=== PATIENT | female | born 1995 | race Caucasian/White ===

== ENCOUNTER → 2018-04-21 13:34 | Outpatient (CLI) | payer SELFPAY ==
--- OUTSIDE RECORDS SUMMARY | 2018-06-23 12:46 | XMS RPT_ITS ---
:1995 Author Organization OHIP Care Team Providers Name Role Phone RudiAnanda rangel Attending Unavailable GALINDO DO, KONRAD N Admitting Unavailable GALINDO DO, KONRAD N Attending Unavailable GALINDO DO, KONRAD N Consulting Unavailable NONE, NONE Primary Care Unavailable NONE, NONE Consulting Unavailable GALINDO DO, KONRAD N Admitting Unavailable GALINDO DO, KONRAD N Attending Unavailable GALINDO DO, KONRAD N Consulting Unavailable NONE, NONE Primary Care Unavailable NONE, NONE Consulting Unavailable KOBI PRASAD MD Admitting Unavailable SHANICE ROWELL, KOBI Murray Attending Unavailable KOBI PRASAD MD Consulting Unavailable NONE, NONE Consulting Unavailable KOBI PRASAD MD Admitting Unavailable KOBI PRASAD MD Attending Unavailable KOBI PRASAD MD Consulting Unavailable NONE, NONE Primary Care Unavailable NONE, NONE Consulting Unavailable GALINDO DO, KONRAD N Admitting Unavailable GALINDO DO, KONRAD N Attending Unavailable NONE, NONE Primary Care Unavailable [facility] [phone], Damaso [phone] Consulting Unavailable GALINDO DO, [facility] Consulting Unavailable NONE, NONE Consulting Unavailable PROBLEMS PROBLEMS DATE TYPE CONDITION / CODE ATTENDING STATUS SOURCE 04/21/2018 Unknown Z36.85 - Encounter Ananda Zhou Active [facility] Streptococcus B / Repository Z36.85(ICD-10) 03/09/2018 Unknown SUP PG INSUFF SHANICE ROWELL, KOBI Active [facility] TRI / Repository O09.30(ICD-10) 02/19/2018 Admitting PREG INSUFF RUBEN PRASAD MD, KOBI Active [facility] diagnosis CARE / V23.7(ICD-9) E Hospital Repository 02/19/2018 Unknown PREG INSUFF RUBEN PRASAD MD, KOBI Active [facility] CARE / V23.7(ICD-9) E Hospital Repository 03/09/2018 Admitting SUP PG INSUFF GALINDO DO, Active [facility] diagnosis [facility]L [facility] TRI / Repository O09.30(ICD-10) 03/09/2018 Unknown SUP PG INSUFF GALINDO DO, Active [facility] [address] [place] [address] TRI / Repository O09.33(ICD-10) 03/09/2018 Unknown 29 WEEKS GESTATION GALINDO DO, Active [facility] OF / [facility] Z3A.29(ICD-10) Repository 03/09/2018 Unknown ENCTR GALINDO DO, Active [facility] SCREENING UNSPEC / [facility] Z36.9(ICD-10) Repository 02/19/2018 Unknown ENC SUPV OT KOBI GALLARDO MD Active [facility] PREG FIRST TRI / E Hospital Z34.81(ICD-10) Repository 02/19/2018 Admitting ENC SUPV OTKOBI GEORGE MD Active [facility] diagnosis PREG FIRST TRI / E Hospital Z34.81(ICD-10) Repository 05/07/2017 Admitting COMPLETE/UNS SPONT GALINDO DO, Active [facility] diagnosis AB W/O COMP / [facility] Hospital O03.9(ICD-10) Repository 05/07/2017 Unknown COMPLETE/UNS SPONT GALINDO DO, Active [facility] AB W/O COMP / [facility] Hospital O03.9(ICD-10) Repository 05/05/2017 Admitting SAB NOS W/O GALINDO DO, Active [facility] 05/05/2017 Unknown SAB NOS W/O GALINDO DO, Active [facility] COMPLICATION / KONRAD N Hospital 634.90(ICD-9) Repository PROCEDURES PROCEDURES No Procedure Records FoundRESULTS RESULTS Observed: 04/21/2018 Status: F Source: [place] CULTURE, GROUP B 12:15 PM [facility] STREPTOCOCCUS REPOSITORY Comments: VAGINAL/RECTAL JANETH Culture Group B Beta Streptococcus is not isolated. Performed By: #### M100.1800 #### [facility] [address] [place], [address] CBC WITHOUT DIFFERENTIAL Collected: 03/05/2018 Status: F Source: MERRILL 11:50 AM [facility] REPOSITORY TYPE CODE TESTS RESULT OUT OF REFERENCE UNITS RANGE LAB 6690-2(LOIN 4.80-10.80 10E3/uL C) WBC # Bld Auto 10.19 LAB 789-8(LOINC 4.00-6.30 10E6/uL ) RBC # Bld Auto 4.05 LAB 718-7(LOINC 12.0-16.0 g/dL ) Low Hgb Bld-mCnc 11.6 LAB 4544-3(LOIN 37.0-47.0 % C) Low Hct VFr Bld 33.2 Auto LAB 787-2(LOINC 80.0-100.0 fL ) MCV RBC Auto 82.0 LAB 785-6(LOINC 27.0-31.0 pg ) MCH RBC Qn 28.6 Auto LAB 786-4(LOINC 32.0-36.0 g/dL ) MCHC RBC 34.9 Auto-mCnc LAB 55510-2(KELI 36.4-46.3 fL NC) RDW RBC Auto 40.4 LAB 777-3(LOINC 130-400 10E3/uL ) Platelet # Bld 215 Auto LAB 11759-9(KELI 9.0-13.0 fL NC) PMV Bld Auto 10.6 Performed By: #### 84520-5 #### [facility] [address] [place], [place] [address] [employer]sembler - Iza BATISTA [id number] GLUCOSE CHALLENGE Collected: 03/05/2018 Status: F Source: [facility] 11:50 AM HOSPITAL REPOSITORY TYPE CODE TESTS RESULT OUT OF REFERENCE UNITS RANGE LAB 04676-2(LO 70-140 mg/dL INC) 128 Glucose 1h p Glc SerPl-mCnc LAB HGLUCHAL(L OINC) NOTE: HGLUCHAL If patient value is equal to or exceeds 140 mg/dL, the 3 HR Oral Glucose Tolerance Test is recommended. Performed By: #### 97841-9 #### [place] [address] [place] [address] [employer] - [facility] [id number] RPR Collected: 03/05/2018 Status: F Source: [facility] 11:50 AM HOSPITAL REPOSITORY TYPE CODE TESTS RESULT OUT OF REFERENCE UNITS RANGE LAB 45492-2(LO NON REACTIVE INC) NON REACTIVE RPR Ser Ql LAB HRPR(LOINC ) All reactive HRPR test results will be followed up with confirmatory testing. The diagnosis of syphilis should not be made on a single reactive result without the support of a positive history or clinical evidence. Therefore, as with any serological testing procedure, Reactive card test specimens should be subjected to further serologic study. Performed By: #### 96705-2 #### [place] [address] [employer] - [facility] [id number] RUBELLA AB IGG Collected: 03/05/2018 Status: F Source: [facility] 11:50 AM HOSPITAL REPOSITORY TYPE CODE TESTS RESULT OUT OF REFERENCE UNITS RANGE LAB 25690-7(L IU/mL OINC) 32.9 RUBV IgG Ser Ql EIA LAB HRUBELLA( LOINC) RUBELLA IgG HRUBELLA INTERPRETATION <5.0 IU/mL Non-immune 5.0-9.9 IU/mL Equivocal >10.0 IU/mL Immune Performed By: #### 02148-5 #### [place] [address] [employer] - [facility] [id number] HEP B SURFACE AG Collected: 03/05/2018 Status: F Source: [facility] 11:50 AM HOSPITAL REPOSITORY TYPE CODE TESTS RESULT OUT OF REFERENCE UNITS RANGE LAB 5195-3(KELI NEGATIVE ISR NC) NONREACTIVE HBV surface Ag Ser Ql LAB HHBVSAG(LO INC) INTERPRETATION OF HHBVSAG RESULTS A NONREACTIVE test result means that the specimen is presumed to be negative for HBsAg. A REACTIVE test result means that the specimen is reactive for HBsAg. All reactive results will be followed up with confirmatory testing. Performed By: #### HBVSAGV #### [address] [place] [address] [employer] - [facility] [id number] HIV 1 AND 2 SCREEN Collected: 03/05/2018 Status: F Source: [facility] 11:50 AM HOSPITAL REPOSITORY TYPE CODE TESTS RESULT OUT OF REFERENCE UNITS RANGE LAB 7918-6(KELI NON REACTIVE ISR NC) NON REACTIVE HIV1+2 Ab Ser Ql LAB HHIV(INC ) INTERPRETATION OF HHIV RESULTS A NON REACTIVE test result means that HIV-1 and HIV-2 antibodies were not detected in the specimen. A REACTIVE test result means that HIV-1 and HIV-2 antibodies have been detected in the specimen. This HIV 1,2 test is a rapid screen for the presence of HIV 1 and 2 antibodies. All reactive test results will be followed up with confirmatory testing. Performed By: #### 37138-6 #### [address] [place] [address] [employer] - [facility] [id number] HEP C AB WITH REFLEX Collected: 03/05/2018 Status: F Source: [facility] 11:50 AM [facility] REPOSITORY TYPE CODE TESTS RESULT OUT OF REFERENCE UNITS RANGE LAB HCVAB(LOIN ISR C) NONREACTIVE HEP C Ab LAB HHCV(INC ) INTERPRETATION OF HHCV RESULTS A NONREACTIVE test result means that the specimen is presumed to be negative for Hep C Ab. A REACTIVE test result means that the specimen is reactive for Hep C Ab. All reactive results will be followed up with confirmatory testing. Performed By: #### HCVAB #### [address] [place] [address] [employer] As[employer] - [facility] [id number] Observed: 03/05/2018 Status: F Source: [facility] CULTURE URINE 10:48 AM HOSPITAL REPOSITORY COLONY COUNT = ZERO COLONY FORMING UNITS, ML ISOL NO GROWTH OBSERVED AFTER 1 DAY NO PATHOGENS GROWN AFTER 2 DAYS Performed By: #### URINE #### [facility] [address] [place] [address] Scroll Assembler - Iza BATISTA [id number] ULTRASOUND 2ND Observed: 03/05/2018 Status: F Source: [facility] OR 3RD TRIMESTER 9:43 AM HOSPITAL REPOSITORY TRANSABDOMINAL OBSTETRICAL ULTRASOUND DATE: 03/05/2018 INDICATION: Late care. FINDINGS: Transabdominal obstetrical ultrasound is performed and compared to the prior examination from 04/13/2017. There is a single live intrauterine gestation in cephalic presentation. Amniotic fluid index measures 11 cm. The placenta is anterior and grade 0. No placenta previa. The facial structures as well as the intracranial structures are slightly limited in evaluation due to ossified calvarium. However, the thalami and ventricles appear to be normal in appearance. The stomach, kidneys, bladder, cord insertion, three-vessel cord, and 4-chambered heart are normally visualized. measurements: BPD 7.3 cm, 29 weeks 3 days HC: 28 cm, 30 weeks 3 days AC: 26 cm, 30 weeks 4 days FL: 5.7 cm, 30 weeks 0 days HC/AC 1.05 (0.98-1.20) Estimated weight: 1546 g corresponding to the 47th percentile Heart rate: 149 bpm Estimated gestational age: 29 weeks and 5 days Estimated date of confinement: 05/16/2018 IMPRESSION: 1. Single live intrauterine gestation in cephalic presentation with anatomic survey grossly normal. However, the facial structures as well as intracranial structures are slightly suboptimally evaluated on this exam. 2. Gestational age of 29 weeks and 5 days corresponding to an estimated date of confinement of 05/16/2018. measurements are given in the body of the report. CHLAMYDIA AND Collected: 02/16/2018 Status: F Source: [facility] GONORRHEA ANGELIQUE 5:23 PM HOSPITAL REPOSITORY TYPE CODE TESTS RESULT OUT OF REFERENCE UNITS RANGE LAB 039875(LOIN Negative C) 37669-2 Negative LAB 039803(LOIN Negative C) 20477-5 Negative Performed By: #### GCCH #### Performed for [facility] [address] [place] [address] HCG BLOOD Collected: 05/05/2017 Status: F Source: [facility] 10:39 AM HOSPITAL REPOSITORY TYPE CODE TESTS RESULT OUT OF REFERENCE UNITS RANGE LAB 62606-0(LO 1-3 mIU/mL INC) 4 High B-HCG SerPl-aCnc LAB HHCG(LOINC ) HCG INTERPRETATION HHCG The expected values were calculated non-parametrically and represent the central 95% of the population. When borderline results are encountered, patient samples should be drawn 48 hours later. The concentration of HCG rises rapidly during early . Gestational Age Expected HCG Values 0.2-1 week 5-50 1-2 weeks 50-500 2-3 weeks 100-5000 3-4 weeks 500-10,000 4-5 weeks 1000-50,000 5-6 weeks 10,000-100,000 6-8 weeks 15,000-200,000 2-3 months 10,000-100,000 Performed By: #### 64751-0 #### [address] [place] [address] Scroll Assembler - Iza CANALESWA [id number] HCG BLOOD Collected: 04/28/2017 Status: F Source: [facility] 10:05 AM HOSPITAL REPOSITORY TYPE CODE TESTS RESULT OUT OF REFERENCE UNITS RANGE LAB 76021-0(LO 1-3 mIU/mL INC) 14 High B-HCG SerPl-aCnc LAB HHCG(LOINC ) HCG INTERPRETATION HHCG The expected values were calculated non-parametrically and represent the central 95% of the population. When borderline results are encountered, patient samples should be drawn 48 hours later. The concentration of HCG rises rapidly during early . Gestational Age Expected HCG Values 0.2-1 week 5-50 1-2 weeks 50-500 2-3 weeks 100-5000 3-4 weeks 500-10,000 4-5 weeks 1000-50,000 5-6 weeks 10,000-100,000 6-8 weeks 15,000-200,000 2-3 months 10,000-100,000 Performed By: #### 60225-3 #### [place] [address] Scroll Assembler - [facility]za [facility] [id number] ALLERGIES ALLERGIES DATE TYPE / CODE NAME / CODE REACTION SEVERITY SOURCE Drug NKA/[id number]( UNKNOWN [facility] Allergy/4160 RXNORM) [facility] [address]149(SNOMED Repository CT) ENCOUNTERS ENCOUNTERS ADMIT/DISCHARGE ACCOUNT ADMITTING ENCOUNTER LOCATION SOURCE NUMBER CLASS 04/21/[id number] [facility] Hospital ing:LABSPEC Repository 03/05/2018/03/05/20 [id number] SHANICE ROWELL, Ambulatory [address] Repository LiveBuilding: KMPLAB 03/05/2018/03/05/20 [id number] GALINDO DO, Ambulatory [address] Repository LiveBuilding: KMP RAD 02/16/2018/02/17/20 [id number] SHANICE ROWELL, Ambulatory [address] LiveBuilding: OUTPATIENT 05/05/2017/05/05/19 [id number] GALINDO DO, Ambulatory [address] LiveBuilding: LAB 04/28/2017/04/28/19 [id number] GALINDO DO, Ambulatory [address] LiveBuilding: LAB PAYERS PAYERS ENCOUNTER GUARANTOR PAYER SUBSCRIBER SOURCE 04/21/2018 SHERWIN [id number] [facility]LF [facility]Y [facility] [address]Lua: (740) Number: [facility] [phone] () Date:2018-04-21 03/05/2018 SHERWIN E MASTDOB: Primary SHERWIN E MASTDOB: [facility] [id number] Insurance:[facility] [id number] [place], [place] [address]Policy Number: [address] [place], [place] [address]OfywkzhywOhioHealth [facility] [address]Yrt: (740) Date:6097[place]82-50[place]DB[place], [place] [phone] () [address] [place] [id number]: 03/05/2018 SHERWIN E MASTDOB: Primary SHERWIN E MASTDOB: [facility] [id number] Insurance:[facility] [id number] [place], [place] [address]Policy Number: [address] [place], [place] [address]SfjibfwslOhioHealth [facility]ering[facility] [address]Ezo: (740) Date:5769-32-18EKBARNESVILLE, [place] [phone] (HP) [address] [place] [id number]: 02/16/2018 SHERWIN E MASTDOB: Primary SHERWIN E MASTDOB: [facility], [id number] [place], [place] [address]Policy Number: [address] [place], [place] [address]AftpuvyicOhioHealth [facility] [address]Gzx: (740) Date:1367-31-08USBARN[place], [place] [phone] () [address] [place] [address] 18238PS: 05/05/2017 SHERWIN E MASTDOB: Primary SHERWIN MASTDOB: [facility] Insurance:SELF [id number] [place] [address] PAYPolicy Number: 85 [place], [place] Effective Date:[phone]: ([phone]) J[place]ICA [place] [phone] (HP) [place], [place] [address]TT: [id number] 04/28/2017 SHERWIN E MASTDOB: Primary MAR W MASTDOB: [facility] Insurance[facility] [id number] [facility] HospitalPolicy Number: [address] [place], [place] [address]GwerxwhxfR[place], [place] [address]Ryr: (960) Date:4752-15-42[address] [address] [phone] (HP) [address] [place] [address]ZD:
== END ==
PROVIDERS: Visit Provider Obstetrics & Gynecology
DX: Z36.85 Encounter for antenatal screening for Streptococcus B (principal)
CPT/HCPCS: 87081

== ENCOUNTER 2018-05-18 15:25 | Outpatient (CLI) | payer SELFPAY ==
[2018-05-18 17:06] VITALS: BMI 39.6
--- NOTE | 2018-05-25 07:51 | OB.TRI.NOTE ---
History of Present Illness Date of Service: 05/18/18 Was patient seen by the physician?: Yes Reason For Visit: R/O LABOR Date of Service: 05/18/18 History of Present Illness: 23 yo female at 40+ wks prior C/S plans . presents with UCs. Unfavorable cervix. Allergies No Known Allergies Allergy (Verified 05/18/18 17:07) Review of Systems Gynecological: Reports: - - CC of UCs. Physical Exam General: Alert, Oriented x3, Cooperative, - - breathing through some UCs HEENT: Atraumatic Abdomen: Soft, Gravid Presentation: Cephalic Cervix Dilation (cm): 1 Station: -3 Effacement (%): 25 NST - FHR Rate Baby A Variability:: Moderate Accelerations:: 15 x 15 Decelerations:: None NST Reactive:: Yes, Appropriate for gestational age FHR Category:: Category I Uterine Activity:: Irregular UCs. Impression/Plan 40+ wk female , prior C/S. planned Cervix /hi/post Sent home with irregular UCs, unfavorable cervix. Prodromal labor
== END 2018-05-18 18:00 | disposition home or self-care (01) ==
LOC: WPOUT 15:58
PROVIDERS: Family Provider Family Medicine; PCP Family Medicine; Referring Provider Obstetrics & Gynecology; Visit Provider Obstetrics & Gynecology
DX: O47.1 False labor at or after 37 completed weeks of gestation (principal); Z3A.40 40 weeks gestation of pregnancy
CPT/HCPCS: 59025; 59050; 99218; G0378

== ENCOUNTER 2018-05-19 02:22 | Inpatient (IN) | payer SELFPAY ==
[2018-05-18 17:06] VITALS: BMI 39.6
[2018-05-19] MEDS: Lactated Ringers 1,000 ML 50 ML IV (02:38)
[2018-05-19 02:41] VITALS: BMI 39.7
[2018-05-19 02:59] LABS: Hematocrit 38.2 % (37-47); Hemoglobin 13.2 g/dl (12.0-15.0); Mean Corp Hgb Conc 34.6 g/gl (32-36); Mean Corpuscular Hgb 27.9 pg (27.0-32.0); Mean Corpuscular Volume 80.8 fL (81-99); Mean Platelet Vol. 10.8 fl (6.2-12.0); Platelet Count 175 K/mm3 (150-450); RBC Distribution Width CV 14.3 % (11.6-14.6); RBC Distribution Width SD 42.3 fl (35.1-43.9); Red Blood Count 4.73 M/mm3 (4.2-5.4); Scan Indicated on CBC? Y/N NO; White Blood Count 12.9 K/mm3 (4.4-11.0)
[2018-05-19] MEDS: Oxytocin 30 units/NS 500 ml 30 UNITS/500 ML IV.SOLN 334 UNITS IV (03:06)
--- NOTE | 2018-05-19 03:23 | PCM.OB.VAG ---
Vaginal Delivery Maternal Presentation: Active Labor 40 5/7 wk Amniotic Membrane Rupture Type: Spontaneous at home Final ARTHUR: 05/14/18 Gestational age: 40 Weeks and 5 Days Date of Procedure: 05/19/18 Pre-Operative Diagnosis: 40 5/7 wk Post-Operative Diagnosis: Same Surgery/ Procedure Performed: Spontaneous Vaginal Delivery Type of Anesthesia: Local with 1% lidocaine Description of Procedure: Presented completely dilated. of a [place] viable female over intact perineum to lacerations. Head delivered RENZO. No nuchal cord, shoulders delivered easily . OP and nares bulb suctioned and baby to maternal abdomen with spont, vigorous cry. Routine cord gases collected. BP after delivery wnl, diastolic in 60-70s. PIH labs drawn are not sent PP exam: vaginal and perineal 2nd deg laceration. Repaired to hemostatic, intact with 3-0 Vicryl NO other lacerations noted. Placenta delivered by spont expulsion, 3V cord, normal appearing and intact with trailing membranes. EBL 300 Pt and tolerated delivery well. To recovery, stable condition Ray Mariely counts correct. Presentation: Vertex Placental Delivery Description: Spontaneous, Expressed Placenta Disposition: [facility] Cord Vessel Description: 3 Vessels Cord Gases drawn per routine: ABG, VBG Cord Entanglement: None Estimated Blood Loss: 300 Infant A gender: Female (1 minute): 8 (5 minute): 9 Episiotomy Description: None Laceration: Midline, Perineal Extension/lac, Vaginal Extension/lac, 2nd degree Medications given after delivery: IV Pitocin Complications: None
[2018-05-19] MEDS: Oxytocin 30 units/NS 500 ml 30 UNITS/500 ML IV.SOLN 167 UNITS IV (03:35)
--- NOTE | 2018-05-19 03:41 | PCM.DCVAG ---
Discharge Diet: No Restrictions Discharge Activity: May Shower, May Take a Tub Bath Return to work on:: 07/05/18 Additional Activity Instructions:: Nothing in the vagina for 4-6 weeks. You may return to work/school in 6 weeks. Additional Instructions: If you experience any of the following, contact your healthcare provider. Bleeding that soaks a pad every hour for 2 hours Fever 100.4 or higher Unrelieved abdominal pain Problems urinating (including inability to urinate or burning while urinating). Visual changes Severe headache Flu-like symptoms Pain or redness in one of both of your breasts Pain, warmth, tenderness or swelling in your legs, especially the calf area Frequent nausea and vomiting Symptoms of depression or anxiety If you experience any of the following, call 911 or go to the nearest Emergency Room. Chest pain Problems breathing Seizure activity Partial or complete paralysis of a body part, slurred speech, weakness or drooping of the face, or a sudden inability to walk or hold your balance Allergies/Adverse Reactions: Allergies No Known Allergies Allergy (Verified 05/18/18 17:07) Medications to take at Discharge Prenatabs FA 1 tab PO DAILY 05/18/18 Please Follow Up With: Ananda Zhou MD - [phone] When: Call to make an appointment with your doctor in 6 weeks. Primary Care Physician: Ananda Chase [Primary Care Provider] - Test Results: Test results from this visit will be discussed in further detail at your follow-up appointment, if applicable. Proposed Discharge Date: 05/21/18
--- NOTE | 2018-05-19 03:42 | DCINST_ITS ---
Discharge Diet: No Restrictions Discharge Activity: May Shower, May Take a Tub Bath Return to work on:: 07/05/18 Additional Activity Instructions:: Nothing in the vagina for 4-6 weeks. You may return to work/school in 6 weeks. Additional Instructions: If you experience any of the following, contact your healthcare provider. * Bleeding that soaks a pad every hour for 2 hours * Fever 100.4 or higher * Unrelieved abdominal pain * Problems urinating (including inability to urinate or burning while urinating). * Visual changes * Severe headache * Flu-like symptoms * Pain or redness in one of both of your breasts * Pain, warmth, tenderness or swelling in your legs, especially the calf area * Frequent nausea and vomiting * Symptoms of depression or anxiety If you experience any of the following, call 911 or go to the nearest Emergency Room. * Chest pain * Problems breathing * Seizure activity * Partial or complete paralysis of a body part, slurred speech, weakness or drooping of the face, or a sudden inability to walk or hold your balance Allergies/Adverse Reactions: Allergies No Known Allergies Allergy (Verified 05/18/18 17:07) Medications to take at Discharge Prenatabs FA 1 tab PO DAILY 05/18/18 Please Follow Up With: Ananda Zhou MD - [phone] When: Call to make an appointment with your doctor in 6 weeks. Primary Care Physician: Ananda Chase [Primary Care Provider] - Test Results: Test results from this visit will be discussed in further detail at your follow- up appointment, if applicable. Proposed Discharge Date: 05/21/18
[2018-05-19] MEDS: Ibuprofen 600 MG Tablet PO ×2 (04:44→11:40)
[2018-05-19] MEDS: 0.9% Saline Lock 10 ML Syringe IV (04:46)
[2018-05-19 08:23] VITALS: BP 120/59; PULSE 87; RESP 20; TEMP 36.6; O2SAT 97
[2018-05-19] MEDS: Senna/Docusate Sodium 1 Tablet PO (09:17)
[2018-05-19 12:00] VITALS: BP 120/77; PULSE 83; RESP 16; TEMP 36.6; O2SAT 98
--- NOTE | 2018-05-19 13:47 | NURSING ---
had 3 cm clot before getting in shower. lochia small
[2018-05-19 15:56] VITALS: BP 127/65; PULSE 80; RESP 18; TEMP 36.8; O2SAT 98
[2018-05-19 20:09] VITALS: BP 119/59; PULSE 83; RESP 18; TEMP 36.4; O2SAT 97
[2018-05-20] VITALS: BP 121/67; PULSE 83; RESP 16; TEMP 36.4
[2018-05-20 03:55] VITALS: BP 116/66; PULSE 77; RESP 18; TEMP 36.5
[2018-05-20] MEDS: Acetaminophen 500 MG Tablet 1000 MG PO (07:02)
--- NOTE | 2018-05-20 07:50 | PCM.PN.OB ---
Subjective: PPD#1 40+ wks Doing well. Recalling events of observation, labor. Breast feeding well. Pain control adequate - Physical Exam General: Alert, Oriented x3, Cooperative, No apparent distress HEENT: Atraumatic Abdomen: Soft - Fundus firm NT 1-2 cm inf to umbilicus Psych/Mental Status: Normal Affect Vital Signs Temp Pulse Resp BP Pulse Ox 97.7 F L 77 18 116/66 97 05/20/18 03:55 05/20/18 03:55 05/20/18 03:55 05/20/18 03:55 05/19/18 20:09 Oxygen Delivery Method Room Air Weight: 108.3 kg Body Mass Index (BMI) 39.7 Intake and Output for Last 24 Hours 05/18/18 05/19/18 05/20/18 23:59 23:59 23:59 Output Total 800 / 800 Balance -800 / -800 Medical Necessity - Tobacco Use Smoking Status: Former smoker Assessment/Plan PPD#1 Stable pp. Continue care.
[2018-05-20 08:00] VITALS: BP 128/72; PULSE 80; RESP 16; TEMP 36.4; O2SAT 97
[2018-05-20] MEDS: Senna/Docusate Sodium 1 Tablet PO (08:07)
[2018-05-20 11:13] VITALS: BP 125/79; PULSE 86; RESP 16; TEMP 36.2; O2SAT 97
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
== END 2018-05-20 11:50 | disposition home or self-care (01) | DRG 807 ==
PROVIDERS: Admitting Provider Obstetrics & Gynecology; Family Provider Family Medicine; PCP Family Medicine; Referring Provider Obstetrics & Gynecology; Visit Provider Obstetrics & Gynecology
DX: O42.02 Full-term premature rupture of membranes, onset of labor within 24 hours of rupture (principal); Z37.0 Single live birth; O34.211 Maternal care for low transverse scar from previous cesarean delivery; O70.1 Second degree perineal laceration during delivery; Z3A.40 40 weeks gestation of pregnancy; Z87.891 Personal history of nicotine dependence
CPT/HCPCS: 59025; 59050; 85027; 86850; 86900; 99218; J7120; A4216; G0378

== ENCOUNTER → 2019-08-25 15:06 | Outpatient (CLI) | payer SELFPAY ==
[2019-08-25 16:37] LABS: Absolute Lymphocyte Count 1.78 X10^3/uL (0.83-4.51); Absolute Neutrophil Count 5.9 X10^3/uL (2.0-7.7); Basophil# 0.02 X10^3/uL; Basophil% 0.2 % (0-1); Eosinophil# 0.13 X10^3/uL; Eosinophils% 1.6 % (0-5); Hematocrit 33.6 % (37-47); Hemoglobin 11.2 g/dL (12.0-15.0); Lymphocyte # 1.78 X10^3/ul (4.0); Lymphocyte % 21.4 % (19-41); Mean Corp Hgb Conc 33.3 g/dL (32-36); Mean Corpuscular Hgb 27.2 pg (27.0-32.0); Mean Corpuscular Volume 81.6 fL (81-99); Mean Platelet Vol. 10.5 fl (6.2-12.0); Monocyte# 0.51 X10^3/uL; Monocyte% 6.1 % (0-10); NRBC Flagged by Analyzer 0 % (0-5); Neutrophil # 5.86 X10^3/uL (2.7-7.7); Neutrophil % 70.5 % (47-70); Platelet Count 219 K/mm3 (150-450); RBC Distribution Width CV 14.1 % (11.6-14.6); RBC Distribution Width SD 41.2 fl (35.1-43.9); Red Blood Count 4.12 M/mm3 (4.2-5.4); White Blood Count 8.3 K/mm3 (4.4-11.0)
[2019-08-25 16:53] LABS: Color, Urine Yellow (Yellow); Glucose, Dipstick Normal (Normal); Ketone-Dipstick Negative (Negative); Leukocyte Esterase-Dipstick 25 /ul (Negative); Nitrite-Dipstick Negative (Negative); Occult Blood-Urine Negative /ul (Negative); Protein-Dipstick Negative (Negative); Specific Gravity, Urine 1.025 (1.002-1.030); Urine Bilirubin Dipstick Negative (Negative); Urine Clarity Clear (Clear); Urine Urobilinogen 1 mg/dl (Normal)
[2019-08-25 16:57] LABS: Glucose Challenge Gest 1H 50g 140 mg/dL (70-140); Thyroid Stim Hormone (TSH) 0.72 uIU/mL (0.358-3.74)
[2019-08-25 17:28] LABS: HIV - WCH Non-Reactive (Nonreactive); Hepatitis B Surface Antigen Non-Reactive (Nonreactive); Hepatitis C Antibody Non-Reactive (Nonreactive); Rubella IgG 26.2 IU/mL
[2019-09-01 00:54] LABS: Prenatal RPR NONREACTIVE (NONREACTIVE)
== END ==
PROVIDERS: PCP Family Medicine; Visit Provider Obstetrics & Gynecology
DX: Z34.83 Encounter for supervision of other normal pregnancy, third trimester (principal)
CPT/HCPCS: 36415; 81002; 82950; 84443; 85025; 86703; 86762; 86803; 87340

== ENCOUNTER → 2019-09-28 | Outpatient (CLI) | payer SELFPAY | END | disposition home or self-care (01) | LOC: LABSPEC 11:06 | PROVIDERS: PCP Family Medicine; Visit Provider Obstetrics & Gynecology | DX: Z36.85 Encounter for antenatal screening for Streptococcus B (principal) | CPT/HCPCS: 87081 ==

== ENCOUNTER 2019-11-01 10:35 | Inpatient (IN) | payer SELFPAY ==
[2019-11-01] VITALS (20 sets, daily range): BP systolic 122–147; BP diastolic 61–91; PULSE 50–79; RESP 14; TEMP 36.6–37.1; O2SAT 98–99; BMI 41.4
--- NOTE | 2019-11-01 08:45 | OB.TRI.HP_ITS ---
- Problem List (1) 40 weeks gestation of Status: Acute (2) Desires (vaginal after ) trial Status: Acute History of Present Illness Date of Service: 11/01/19 Was patient seen by the physician?: Yes Reason For Visit: R/O LABOR Date of Service: 11/01/19 Final ARTHUR: 10/26/19 Gestational age: 40 Weeks and 6 Days Allergies No Known Allergies Allergy (Verified 11/01/19 08:26) Review of Systems Constitutional: Denies: Chills, Fever, Weight Change HEENT: Denies: Head Aches, Sinus Congestion, Sinus Drainage Cardiovascular: Denies: Chest Pain, Palpitations Respiratory: Denies: Cough, Shortness of breath at rest, Sputum production Gastrointestinal: Denies: Abdominal Pain, Nausea, Vomiting Genitourinary: Denies: Dysuria Musculoskeletal: Denies: Joint Pain, Joint Tenderness Skin: Denies: Rash, Wounds Neurological: Denies: Numbness, Tingling, Focal weakness Psychiatric: Denies: Anxiety, Depression, Homicidal Ideations, Suicidal Ideations Hematologic/ Lymphatic: Denies: Easy Bruising, Easy Bleeding Physical Exam Vitals: Vital Signs Temp Pulse BP 98.0 F 79 122/70 H 11/01/19 08:06 11/01/19 08:07 11/01/19 08:07 General: Alert, Oriented x3, No apparent distress HEENT: Atraumatic, Normocephalic. Negative for: Thyromegaly, Lymphadenopathy Cardiovascular: Regular rate, Regular Rhythm Lungs: Clear to auscultation Abdomen: Bowel Sounds Present, Gravid Neurological: Deep Tendon Reflexes 2+/4 and Symmetrical, Neuro grossly intact [employer]: Normal external genitalia. Negative for: Vulvar lesions Estimated gestational size: Appropriate for gestational size Presentation: Cephalic Cervix Dilation (cm): 4 Station: -3 Effacement (%): 50 NST - FHR Rate Baby A Baseline: 140 Variability:: Moderate Accelerations:: 15 x 15 Decelerations:: None NST Reactive:: Yes FHR Category:: Category I Uterine Activity:: 5-7m Impression/Plan A/P: here to rule out labor NST Category I SVE 4/50/-3 UC Q5-7m Plan for IOL tomorrow for postdates Will observe for two hours
--- NOTE | 2019-11-01 11:04 | PCM.HP.OB ---
- Problem List (1) 40 weeks gestation of Status: Acute (2) Desires (vaginal after ) trial Status: Acute History Date of Admission: 11/01/19 Final ARTHUR: 10/26/19 Gestational age: 40 Weeks and 6 Days History of this : This is a 24 year-old, G [4], P [2], at 40 weeks gestational age. Allergies No Known Allergies Allergy (Verified 11/01/19 08:26) Home Medications: Home Medications Prenatabs FA 1 tab PO DAILY 05/18/18 Probiotic 11/01/19 Smoking Status: Former smoker Alcohol: None Number of Fetus(es): 1 NST - FHR Rate Baby A Baseline: 140 Variability:: Moderate Accelerations:: 15 x 15 Decelerations:: None NST Reactive:: Yes FHR Category:: Category I Uterine Activity:: 7m History Past Pregnancies: Past Pregnancies Delivery Date Name GA/ Weeks Outcome Route Wt Infant Sex Labor Length Anesthesia Delivery Location Provider FOB 04-13-17 8 sab vag 17 42 csect 6.15 epidural 05-19-18 40 7.0 local Labs: Mom's Problem List Problem Status Onset Code 40 weeks gestation of Acute Z3A.40 Desires (vaginal after ) trial Acute O34.219 Course Did the patient receive Yes care? Labs Blood Type: B RH: POSITIVE RPR/VDRL/Syphilis Nonreactive Rubella status Immune HbSAg Negative Date Done: 08/25/19 Chlamydia Not Done Gonorrhea Not Done HIV/AIDS Non-Reactive Group B Strep: Negative Current Obstetrical History Gestational Diabetes No Incompetent Cervix No Infertility No IUGR No Macrosomia No Hypertension/Pre-eclampsia No Placenta Previa/Abruption No PTL/PROM No Uterine anomaly No Oligohydramnios No Polyhydramnios No Multiple gestation No Past Medical History Asthma No Diabetes No Hypertension No Heart disease No Mitral valve prolapse No Neurologic/Seizure disorder/ No Migraines Kidney disease No Liver disease No Varicosities No Clotting disorders/Hx of DVT No Thyroid Dysfunction No Other medical diseases No Psychiatric disorders No Major trauma No Abnormal PAP smear No Sleep apnea No Mammogram in the last 2 years No Social History Marital Status: Alleged father [place] Hx Smoking Yes Smoking Status Former smoker Expected Infant Delivery Method: Number of Visits: 8 Review of Systems Constitutional: Denies: Chills, Fever, Weight Change HEENT: Denies: Head Aches, Sinus Congestion, Sinus Drainage Cardiovascular: Denies: Chest Pain, Palpitations Respiratory: Denies: Cough, Shortness of breath at rest, Sputum production Gastrointestinal: Denies: Abdominal Pain, Nausea, Vomiting Genitourinary: Denies: Dysuria Musculoskeletal: Denies: Joint Pain, Joint Tenderness Skin: Denies: Rash, Wounds Neurological: Denies: Numbness, Tingling, Focal weakness Psychiatric: Denies: Anxiety, Depression, Homicidal Ideations, Suicidal Ideations Hematologic/ Lymphatic: Denies: Easy Bruising, Easy Bleeding Physical Exam Vitals: Vital Signs Temp Pulse BP 98.0 F 79 122/70 H 11/01/19 08:06 11/01/19 08:07 11/01/19 08:07 General: Alert, Oriented x3, No apparent distress HEENT: Atraumatic, Normocephalic. Negative for: Thyromegaly, Lymphadenopathy Cardiovascular: Regular rate, Regular Rhythm Lungs: Clear to auscultation Abdomen: Bowel Sounds Present, Gravid Neurological: Deep Tendon Reflexes 2+/4 and Symmetrical, Neuro grossly intact [employer]SEMBLER: Normal external genitalia. Negative for: Vulvar lesions Estimated gestational size: Appropriate for gestational size Presentation: Cephalic Cervix Dilation (cm): 4 Station: -3 Effacement (%): 50 Assessment/Plan All Active Problems 40 weeks gestation of (Acute) Desires (vaginal after ) trial (Acute) A/P: This is a 24 year-old, G [4], P [2], at 40 weeks gestational age. SVE unchanged over two hours, remains 4/50/-[address] Zhou, attending Patient will opt to stay for IOL with AROM for postdates Plans epidural for pain management Expect repeat Procedure Criteria Procedure Type: Elective COVID Risk Discussion: The surgeon/proceduralist and patient have discussed in detail the risk of exposure to and/or potential harm posed by the COVID-19 virus with having a surgery/procedure at this time versus the risk of delaying the surgery/procedure. It is not possible to know either the risk of delaying the surgery or procedure or chance of getting an infection with perfect accuracy, but a joint decision was made between the patient and the surgeon/proceduralist to proceed at this time with the scheduled surgery/procedure as indicated on the consent form.
[2019-11-01 11:39] LABS: Absolute Lymphocyte Count 2.28 X10^3/uL (0.83-4.51); Absolute Neutrophil Count 7.1 X10^3/uL (2.0-7.7); Basophil# 0.03 X10^3/uL; Basophil% 0.3 % (0-1); Eosinophil# 0.03 X10^3/uL; Eosinophils% 0.3 % (0-5); Hematocrit 36.6 % (37-47); Hemoglobin 12.4 g/dL (12.0-15.0); Lymphocyte # 2.28 X10^3/ul (4.0); Lymphocyte % 22.6 % (19-41); Mean Corp Hgb Conc 33.9 g/dL (32-36); Mean Corpuscular Volume 79.6 fL (81-99); Mean Platelet Vol. 11.9 fl (6.2-12.0); Monocyte# 0.61 X10^3/uL; NRBC Flagged by Analyzer 0 % (0-5); Neutrophil # 7.12 X10^3/uL (2.7-7.7); Neutrophil % 70.4 % (47-70); Platelet Count 181 K/mm3 (150-450); RBC Distribution Width CV 15.7 % (11.6-14.6); RBC Distribution Width SD 44.4 fl (35.1-43.9); White Blood Count 10.1 K/mm3 (4.4-11.0)
[2019-11-01] MEDS: Lactated Ringers 1,000 ML 200 ML IV (11:40)
--- NOTE | 2019-11-01 12:35 | PN.OBGYN_ITS ---
Patient Problems: Active and Suspected Problems 40 weeks gestation of (Acute) Desires (vaginal after ) trial (Acute) Subjective: Comfortable feeling contractions a little closer about 5-10m, but irregular. Pain is a 3/10. Objective: VSS. FHR baseline 130, +accels, -decels, moderate variability. SVE 5/50/-2. AROM, clear fluid. - Physical Exam Vitals/I&O's: Vital Signs Temp Pulse BP 98.0 F 78 122/81 H 11/01/19 08:06 11/01/19 11:15 11/01/19 11:15 Weight: 112.945 kg Body Mass Index (BMI) 41.4 General: Alert, Oriented x3, Cooperative HEENT: Atraumatic, PERRLA, EOMI, Normocephalic Neck: Supple, No JVD, Negative Carotid Bruits Lungs: Clear to auscultation, Normal air movement Cardiovascular: Regular rate, No murmurs Abdomen: Bowel Sounds Present, Soft, Non Tender Extremities: No edema, Capillary Refill Less than 3 Seconds Skin: No rashes, No breakdown Musculoskeletal: No Tenderness to Palpation of Joints or Extremities Neurological: Cranial nerves II-XII grossly intact Psych/Mental Status: Normal Affect, Appropriate Laboratory Results 11/01/19 11:04: COVID-19 (ANGELIQUE) Pending 11/01/19 11:20: WBC 10.1, RBC 4.60, Hgb 12.4, Hct 36.6 L, MCV 79.6 L, MCH 27.0, MCHC 33.9, RDW Std Deviation 44.4 H, RDW Coeff of Omer 15.7 H, Plt Count 181, MPV 11.9, Immature Gran % (Auto) 0.400, Neut % (Auto) 70.4 H, Lymph % (Auto) 22.6, [place] % (Auto) 6.0, Eos % (Auto) 0.3, Baso % (Auto) 0.3, Absolute Neuts (auto) 7.1, Absolute Lymphs (auto) 2.28, Nucleated RBC % 0 11/01/19 11:20: Blood Type Pending, Antibody Screen Pending Current Medications Acetaminophen (Tylenol) 325 - 650 mg PO Q4H PRN PRN PRN Reason: Pain Score 1-3/10 Al Hydroxide/Mg Hydroxide (Mylanta Ii) 15 - 30 ml PO Q4H PRN PRN PRN Reason: INDIGESTION Citric Acid/Sodium Citrate (Bicitra) 30 ml PO X1 PRN PRN Reason: Section Fentanyl Citrate (Sublimaze (100mcg Ampule)) 25 - 50 mcg IV Q2H PRN PRN PRN Reason: Pain Score 4-10/10 Lactated Ringer's () 500 mls @ 999 mls/hr IV .Q31M PRN PRN Reason: Epidural Lactated Ringer's () 500 mls @ 999 mls/hr IV .Q31M PRN PRN Reason: Corrective Measures Lactated Ringer's () 1,000 mls @ 50 mls/hr IV .Q20H YANELIS Ondansetron HCl (Zofran) 4 mg IV Q4H PRN PRN PRN Reason: NAUSEA Prochlorperazine Edisylate (Compazine Iv) 10 mg IV Q6H PRN PRN PRN Reason: NAUSEA Sodium Chloride () 10 - 40 ml IV X1 PRN PRN Reason: SALINE FLUSH Medical Necessity - Tobacco Use Smoking Status: Former smoker Assessment/Plan All Active Problems 40 weeks gestation of (Acute) Desires (vaginal after ) trial (Acute) A/P: AROM with clear amniotic fluid SVE 50/-2 Category I NST Expect successful repeat
[2019-11-01] MEDS: Oxytocin 30 units/NS 500 ml 30 UNITS/500 ML IV.SOLN IV (16:34)
[2019-11-01] MEDS: Oxytocin 10 UNITS/ML Vial IM (17:50)
--- NOTE | 2019-11-01 17:57 | PCM.OPRPT ---
Vaginal Delivery Maternal Presentation: Active Labor Method of Induction: Amniotomy Amniotic Membrane Rupture Type: Artificial Amniotic Fluid Description: Clear Final ARTHUR: 10/26/19 Final ARTHUR Source: US <20 weeks Gestational age: 40 Weeks and 6 Days Date of Procedure: 11/01/19 Pre-Operative Diagnosis: IUP, Prior Section Post-Operative Diagnosis: IUP, Prior Section Surgery/ Procedure Performed: Spontaneous Vaginal Delivery Type of Anesthesia: Local with 1% lidocaine Description of Procedure: Spontaneous vaginal delivery after section of a viable male with Apgars of 8/9 from an occiput anterior presentation with clear amniotic fluid and normal three-vessel placenta. No episiotomy. Second-degree midline laceration repaired with 3-0 Rapide suture under local. Sponges okay. Delivery physician: Ananda Zhou MD. Presentation: Vertex Placental Delivery Description: Spontaneous Placenta Disposition: [facility] Cord Vessel Description: 3 Vessels Estimated Blood Loss: 250 cc A gender: Male (1 minute): 8 (5 minute): 9 Episiotomy Description: None Laceration: Midline, 2nd degree Medications given after delivery: IM [place] Complications: None
--- NOTE | 2019-11-01 18:00 | DCINST_ITS ---
Discharge Activity: May Shower, May Take a Tub Bath May resume sexual activity in: 4-6 weeks Additional Activity Instructions:: Nothing in the vagina for 4-6 weeks. You may return to work/school in 6 weeks. Call your doctor if you observe: Inability to urinate, Inability to have a bowel movement, Using more than one pad per hour Additional Instructions: If you experience any of the following, contact your healthcare provider. * Bleeding that soaks a pad every hour for 2 hours * Fever 100.4 or higher * Unrelieved incision or abdominal pain * Swelling, redness, discharge or bleeding from your incision or episiotomy site * Your incision begins to separate * Problems urinating (including inability to urinate or burning while urinating). * Visual changes * Severe headache * Flu-like symptoms * Pain or redness in one of both of your breasts * Pain, warmth, tenderness or swelling in your legs, especially the calf area * Frequent nausea and vomiting * Symptoms of depression or anxiety If you experience any of the following, call 911 or go to the nearest Emergency Room. * Chest pain * Problems breathing * Seizure activity * Partial or complete paralysis of a body part, slurred speech, weakness or drooping of the face, or a sudden inability to walk or hold your balance Allergies/Adverse Reactions: Allergies No Known Allergies Allergy (Verified 11/01/19 08:26) Medications to take at Discharge Prenatabs FA 1 tab PO DAILY 05/18/18 Probiotic 11/01/19 Please Follow Up With: Ananda Zhou MD - [phone] When: Call to make an appointment with your doctor in 6 weeks. Primary Care Physician: Ananda Chase MD [Primary Care Provider] - Test Results: Test results from this visit will be discussed in further detail at your follow- up appointment, if applicable.
--- NOTE | 2019-11-01 18:00 | PCM.DCVAG ---
Discharge Activity: May Shower, May Take a Tub Bath May resume sexual activity in: 4-6 weeks Additional Activity Instructions:: Nothing in the vagina for 4-6 weeks. You may return to work/school in 6 weeks. Call your doctor if you observe: Inability to urinate, Inability to have a bowel movement, Using more than one pad per hour Additional Instructions: If you experience any of the following, contact your healthcare provider. Bleeding that soaks a pad every hour for 2 hours Fever 100.4 or higher Unrelieved incision or abdominal pain Swelling, redness, discharge or bleeding from your incision or episiotomy site Your incision begins to separate Problems urinating (including inability to urinate or burning while urinating). Visual changes Severe headache Flu-like symptoms Pain or redness in one of both of your breasts Pain, warmth, tenderness or swelling in your legs, especially the calf area Frequent nausea and vomiting Symptoms of depression or anxiety If you experience any of the following, call 911 or go to the nearest Emergency Room. Chest pain Problems breathing Seizure activity Partial or complete paralysis of a body part, slurred speech, weakness or drooping of the face, or a sudden inability to walk or hold your balance Allergies/Adverse Reactions: Allergies No Known Allergies Allergy (Verified 11/01/19 08:26) Medications to take at Discharge Prenatabs FA 1 tab PO DAILY 05/18/18 Probiotic 11/01/19 Please Follow Up With: Ananda Zhou MD - [phone] When: Call to make an appointment with your doctor in 6 weeks. Primary Care Physician: Ananda Chase MD [Primary Care Provider] - Test Results: Test results from this visit will be discussed in further detail at your follow-up appointment, if applicable.
[2019-11-01] MEDS: Ibuprofen 600 MG Tablet PO (18:30)
[2019-11-01] MEDS: Acetaminophen 500 MG Tablet 1000 MG PO (20:00)
[2019-11-02] MEDS: Ibuprofen 600 MG Tablet PO ×2 (00:29→07:57)
[2019-11-02] MEDS: Acetaminophen 500 MG Tablet 1000 MG PO ×2 (03:33→18:47)
[2019-11-02 03:51] VITALS: BP 119/69; PULSE 66; RESP 14; TEMP 36.1
--- NOTE | 2019-11-02 07:00 | NURSING ---
late entry: pt. with slow bright red trickle still when labia spread, amount of bleeding appropriate, fundus firm, laceration appears approximated, assessed by pin or clip fastenerSHAW Baig, plan of care to notify physician to assess in am, will continue to monitor
[2019-11-02] MEDS: Senna/Docusate Sodium 1 Tablet PO (07:57)
[2019-11-02 08:07] VITALS: BP 113/61; PULSE 70; RESP 14; TEMP 36.3
--- NOTE | 2019-11-02 08:37 | PN.OBGYN_ITS ---
Patient Problems: Active and Suspected Problems 40 weeks gestation of (Acute) Desires (vaginal after ) trial (Acute) Subjective: Feeling well. male son and is going well. Has been up ambulating, tolerating regular diet and denies heavy bleeding. Objective: VSS. Fundus is firm, midline at u. States needs to urinate. Lochia rubra moderate. - Physical Exam Vitals/I&O's: Vital Signs Temp Pulse Resp BP Pulse Ox 97.3 F L 70 14 113/61 98 11/02/19 08:07 11/02/19 08:07 11/02/19 08:07 11/02/19 08:07 11/01/19 19:46 Oxygen Delivery Method Room Air Weight: 112.945 kg Body Mass Index (BMI) 41.4 Intake and Output for Last 24 Hours 10/31/19 11/01/19 11/02/19 23:59 23:59 23:59 Intake Total 1355.21 / 1355.21 Output Total 1650 / 1650 Balance -294.79 / -294.79 General: Alert, Oriented x3, Cooperative HEENT: Atraumatic, PERRLA, EOMI, Normocephalic Neck: Supple, No JVD, Negative Carotid Bruits Lungs: Clear to auscultation, Normal air movement Cardiovascular: Regular rate, No murmurs Abdomen: Bowel Sounds Present, Soft, Non Tender Extremities: No edema, Capillary Refill Less than 3 Seconds Skin: No rashes, No breakdown Musculoskeletal: No Tenderness to Palpation of Joints or Extremities Neurological: Cranial nerves II-XII grossly intact Psych/Mental Status: Normal Affect, Appropriate Laboratory Results 11/01/19 11:04: COVID-19 (ANGELIQUE) Not Detected 11/01/19 11:20: WBC 10.1, RBC 4.60, Hgb 12.4, Hct 36.6 L, MCV 79.6 L, MCH 27.0, MCHC 33.9, RDW Std Deviation 44.4 H, RDW Coeff of Omer 15.7 H, Plt Count 181, MPV 11.9, Immature Gran % (Auto) 0.400, Neut % (Auto) 70.4 H, Lymph % (Auto) 22.6, [place] % (Auto) 6.0, Eos % (Auto) 0.3, Baso % (Auto) 0.3, Absolute Neuts (auto) 7.1, Absolute Lymphs (auto) 2.28, Nucleated RBC % 0 11/01/19 11:20: Blood Type B POSITIVE, Antibody Screen NEGATIVE Current Medications Acetaminophen (Tylenol) 1,000 mg PO Q8H PRN PRN PRN Reason: Pain Score 1-3/10 Last Admin: 11/02/19 03:33 Dose: 1,000 mg Documented by: Bisacodyl (Dulcolax) 10 mg RECTAL UD PRN PRN Reason: If no BM Dibucaine (Dibucaine) 1 applic TOPICAL TID PRN PRN; Protocol PRN Reason: Discomfort Hydrocortisone (Hytone) 1 applic TOPICAL TID PRN PRN; Protocol PRN Reason: Discomfort Ibuprofen (Motrin) 600 mg PO Q6H PRN PRN PRN Reason: Pain Score 1-3/10 Last Admin: 11/02/19 07:57 Dose: 600 mg Documented by: Methylergonovine Maleate (Methergine) 0.2 mg IM X1 PRN PRN Reason: Excess bleeding/uterine atony Ondansetron HCl (Zofran) 4 mg IV Q4H PRN PRN PRN Reason: Nausea Oxycodone HCl (Oxyir) 5 - 10 mg PO Q4H PRN PRN PRN Reason: Pain Score 4-10/10 Senna/Docusate Sodium (Senokot-S, Lola-Colace) 1 - 2 tablet PO DAILY PRN PRN PRN Reason: Constipation Last Admin: 11/02/19 07:57 Dose: 2 tablet Documented by: Simethicone (Mylicon) 80 mg PO PCHS PRN PRN Reason: Indigestion/Stomach pain Sodium Chloride () 5 - 15 ml IV UD PRN PRN Reason: SALINE FLUSH Zolpidem Tartrate (Ambien (Generic)) 5 mg PO QHS PRN PRN PRN Reason: Insomnia Medical Necessity - Tobacco Use Smoking Status: Former smoker Assessment/Plan All Active Problems 40 weeks gestation of (Acute) Desires (vaginal after ) trial (Acute) A/P: S/P repeat day #1 mother Normal involution and course Dyad stable Continue orders To discharge tomorrow
[2019-11-02 12:28] VITALS: BP 110/59; PULSE 69; RESP 18; TEMP 36.3
--- NOTE | 2019-11-02 12:29 | NURSING ---
raised scabbed area noted at umbilicus. Pt states this is new onset. chartman notified
[2019-11-02 16:00] VITALS: BP 123/79; PULSE 84; RESP 18; TEMP 36.3
[2019-11-02 20:30] VITALS: BP 130/74; PULSE 76; RESP 16; TEMP 36.5
[2019-11-03 02:16] VITALS: BP 117/72; PULSE 63; RESP 16; TEMP 36.4
[2019-11-03] MEDS: Ibuprofen 600 MG Tablet PO (02:22)
[2019-11-03 07:38] VITALS: BP 116/70; PULSE 69; RESP 16; TEMP 36.3
--- NOTE | 2019-11-03 09:35 | PCM.PN.OB ---
Patient Problems: Active and Suspected Problems 40 weeks gestation of (Acute) Desires (vaginal after ) trial (Acute) Subjective: Patient without complaints. Breast-feeding going well. Ready to go home today. - Physical Exam Vitals/I&O's: Vital Signs Temp Pulse Resp BP Pulse Ox 97.3 F L 69 16 116/70 98 11/03/19 07:38 11/03/19 07:38 11/03/19 07:38 11/03/19 07:38 11/01/19 19:46 Oxygen Delivery Method Room Air Weight: 249 lb Body Mass Index (BMI) 41.4 Intake and Output for Last 24 Hours 11/01/19 11/02/19 11/03/19 23:59 23:59 23:59 Intake Total 1355.21 / 1355.21 Output Total 1650 / 1650 Balance -294.79 / -294.79 Current Medications Acetaminophen (Tylenol) 1,000 mg PO Q8H PRN PRN PRN Reason: Pain Score 1-3/10 Last Admin: 11/02/19 18:47 Dose: 1,000 mg Documented by: Bisacodyl (Dulcolax) 10 mg RECTAL UD PRN PRN Reason: If no BM Dibucaine (Dibucaine) 1 applic TOPICAL TID PRN PRN; Protocol PRN Reason: Discomfort Hydrocortisone (Hytone) 1 applic TOPICAL TID PRN PRN; Protocol PRN Reason: Discomfort Ibuprofen (Motrin) 600 mg PO Q6H PRN PRN PRN Reason: Pain Score 1-3/10 Last Admin: 11/03/19 02:22 Dose: 600 mg Documented by: Methylergonovine Maleate (Methergine) 0.2 mg IM X1 PRN PRN Reason: Excess bleeding/uterine atony Ondansetron HCl (Zofran) 4 mg IV Q4H PRN PRN PRN Reason: Nausea Oxycodone HCl (Oxyir) 5 - 10 mg PO Q4H PRN PRN PRN Reason: Pain Score 4-10/10 Senna/Docusate Sodium (Senokot-S, Lola-Colace) 1 - 2 tablet PO DAILY PRN PRN PRN Reason: Constipation Last Admin: 11/02/19 07:57 Dose: 2 tablet Documented by: Simethicone (Mylicon) 80 mg PO PCHS PRN PRN Reason: Indigestion/Stomach pain Sodium Chloride () 5 - 15 ml IV UD PRN PRN Reason: SALINE FLUSH Zolpidem Tartrate (Ambien (Generic)) 5 mg PO QHS PRN PRN PRN Reason: Insomnia Medical Necessity - Tobacco Use Smoking Status: Former smoker Assessment/Plan All Active Problems 40 weeks gestation of (Acute) Desires (vaginal after ) trial (Acute) Doing well day #2 status post vaginal after . Will release to home with routine instructions.
== END 2019-11-03 10:10 | disposition home or self-care (01) | DRG 807 ==
LOC: WPOUT 10:44 → WP 10:44
PROVIDERS: Obstetrics & Gynecology; Admitting Provider Obstetrics & Gynecology; PCP Family Medicine; Referring Provider Obstetrics & Gynecology; Visit Provider Obstetrics & Gynecology
DX: O34.219 Maternal care for unspecified type scar from previous cesarean delivery (principal); Z37.0 Single live birth; O48.0 Post-term pregnancy; O70.1 Second degree perineal laceration during delivery; Z3A.40 40 weeks gestation of pregnancy; Z87.891 Personal history of nicotine dependence
CPT/HCPCS: 59025; 59050; 85025; 86850; 86900; 86901; 87635; 94799; 99218; J7120; G0378; U0003

== ENCOUNTER 2021-04-10 11:06 | Outpatient (CLI) | payer SELFPAY ==
[2021-04-10 12:00] LABS: Absolute Lymphocyte Count 1.59 X10^3/uL (0.83-4.51); Absolute Neutrophil Count 5.6 X10^3/uL (2.0-7.7); Basophil# 0.02 X10^3/uL; Basophil% 0.3 % (0-1); Eosinophil# 0.06 X10^3/uL; Eosinophils% 0.8 % (0-5); Hematocrit 35.8 % (37-47); Lymphocyte # 1.59 X10^3/ul (0.83-4.51); Lymphocyte % 20.6 % (19-41); Mean Corp Hgb Conc 33.5 g/dL (32-36); Mean Corpuscular Hgb 27.6 pg (27.0-32.0); Mean Corpuscular Volume 82.3 fL (81-99); Mean Platelet Vol. 10.9 fl (6.2-12.0); Monocyte# 0.41 X10^3/uL; Monocyte% 5.3 % (0-10); NRBC Flagged by Analyzer 0 % (0-5); Neutrophil # 5.59 X10^3/uL (2.7-7.7); Neutrophil % 72.5 % (47-70); Platelet Count 186 K/mm3 (150-450); RBC Distribution Width CV 13.2 % (11.6-14.6); RBC Distribution Width SD 39.8 fl (35.1-43.9); Red Blood Count 4.35 M/mm3 (4.2-5.4); White Blood Count 7.7 K/mm3 (4.4-11.0)
[2021-04-10 12:07] LABS: Color, Urine Yellow (Yellow); Glucose, Dipstick Normal (Normal); Ketone-Dipstick Negative (Negative); Leukocyte Esterase-Dipstick Negative /ul (Negative); Nitrite-Dipstick Negative (Negative); Occult Blood-Urine Negative /ul (Negative); Protein-Dipstick Negative (Negative); Urine Bilirubin Dipstick Negative (Negative); Urine Clarity Clear (Clear); Urine Urobilinogen Normal (Normal)
[2021-04-10 12:36] LABS: Glucose Challenge Gest 1H 50g 162 mg/dL (70-140); Thyroid Stim Hormone (TSH) 0.67 uIU/mL (0.358-3.74)
[2021-04-10 13:02] LABS: HIV - WCH Non-Reactive (Nonreactive); Hepatitis B Surface Antigen Non-Reactive (Nonreactive); Hepatitis C Antibody Non-Reactive (Nonreactive); Rubella IgG Reactive (Nonreactive); Syphilis Antibodies Non-reactive
[2021-04-11 22:07] LABS: Chlamydia By Nucleic Acid AMP Negative (Negative)
[2021-04-12 11:31] LABS: Gonococcus By Nucleic Acid AMP Negative (Negative)
[2021-04-13 16:26] LABS: HPV Reflexed? NOT INDICATED
== END 2021-04-10 23:59 | disposition short-term general hospital (02) ==
LOC: WOBLAB 11:07
PROVIDERS: PCP Family Medicine; Visit Provider Obstetrics & Gynecology
DX: Z34.83 Encounter for supervision of other normal pregnancy, third trimester (principal)
CPT/HCPCS: 81002; 82950; 84443; 85025; 86703; 86762; 86780; 86803; 87086; 87340; 87491; 87591; 88175; G0145

== ENCOUNTER 2021-05-08 15:21 | Outpatient (CLI) | payer SELFPAY | END 2021-05-08 23:59 | disposition home or self-care (01) | LOC: LABSPEC 15:26 | PROVIDERS: PCP Family Medicine; Visit Provider Obstetrics & Gynecology | DX: Z34.83 Encounter for supervision of other normal pregnancy, third trimester (principal) | CPT/HCPCS: 87086; 87088 ==

== ENCOUNTER 2021-06-13 15:24 | Outpatient (CLI) | payer OTHER, SELFPAY | END 2021-06-13 23:59 | disposition home or self-care (01) | PROVIDERS: PCP Family Medicine; Visit Provider Obstetrics & Gynecology | DX: Z36.85 Encounter for antenatal screening for Streptococcus B (principal) | CPT/HCPCS: 87081 ==

== ENCOUNTER 2021-07-06 06:05 | Inpatient (IN) | payer SELFPAY ==
[2021-07-06] VITALS (18 sets, daily range): BP systolic 108–148; BP diastolic 58–76; PULSE 75–93; RESP 16–20; TEMP 36.2–37.3; BMI 43.1
[2021-07-06] MEDS: Lactated Ringers 1,000 ML 50 ML IV (06:30)
[2021-07-06] MEDS: Lactated Ringers 500 ML 999 ML IV (06:31)
[2021-07-06 06:55] LABS: Basophil# 0.03 X10^3/uL; Basophil% 0.2 % (0-1); Eosinophil# 0.01 X10^3/uL; Eosinophils% 0.1 % (0-5); Hematocrit 35.1 % (37-47); Hemoglobin 12.3 g/dL (12.0-15.0); Lymphocyte % 11.6 % (19-41); Mean Corpuscular Hgb 27.2 pg (27.0-32.0); Mean Corpuscular Volume 77.5 fL (81-99); Mean Platelet Vol. 11.2 fl (6.2-12.0); NRBC Flagged by Analyzer 0 % (0-5); Neutrophil # 9.97 X10^3/uL (2.7-7.7); Neutrophil % 82.9 % (47-70); Platelet Count 187 K/mm3 (150-450); RBC Distribution Width CV 14.3 % (11.6-14.6); RBC Distribution Width SD 40.1 fl (35.1-43.9); Red Blood Count 4.53 M/mm3 (4.2-5.4)
--- NOTE | 2021-07-06 07:58 | PCM.HP.BLA ---
History and Physical Date of Admission: 07/06/21 HPI: 26-year-old G5, P3 at 41/0 weeks, ARTHUR 06/29/2021 by 28-week ultrasound, admitted in labor. Reports regular contractions, leaking of fluid. Denies vaginal bleeding. Reports movement. Denies headache, vision changes, chest pain or shortness of breath, nausea or vomiting, diarrhea or constipation, fevers or chills. complicated by: Late care, prior section with 2 successful 's, failed 1 hour 3-hour within normal limits [employer] history: G1: 2017 42-week G2: 2018 8-week SAB G3: 2019 40-week G4: 2019 41-week G5: Current Medical history: Denies Surgical history: 1. section Medications: vitamin Allergies: No known drug allergies Social history: Denies tobacco, alcohol, drug use Family history: Noncontributory Review of system: Negative otherwise stated as above Physical exam: Vitals: BP 148/76, HR 92, Temp 98.9 General: on hands and knees breathing with contractions HEENT: Normocephalic/atraumatic, PERRLA Cardiac: Regular rhythm Respiratory: Clear to auscultation bilaterally Abdomen: Soft, nontender, gravid Extremities: Minimal edema Neurologic: Cranial nerves II through XII grossly intact Musculoskeletal: Strength 5 out of 5 throughout all extremities Cervical exam: 8 cm per RN labs: B positive HIV negative Hepatitis B/hepatitis C negative/negative Syphilis negative Rubella immune gonorrhea/chlamydia negative CBC: Hemoglobin/hematocrit 12.3/35.1, platelets 187, WBC 12 FHR: 145/mod leah/+accel/no decel [place]; q2-3 Assessment/plan:26-year-old G5, P3 at 41/0 weeks, ARTHUR 06/29/2021 by 28-week ultrasound, admitted in labor. -Admit to labor and delivery, routine orders -Plan for trial of labor after section. -Expectant management at this time. Assessment & Plan Assessment/Plan (1) Desires (vaginal after ) trial: (2) Active labor at term:
[2021-07-06] MEDS: Oxytocin 30 units/NS 500 ml 30 UNITS/500 ML IV.SOLN 334 UNITS IV (08:37)
--- NOTE | 2021-07-06 08:45 | OP.PCM_ITS ---
Maternal Data Information Final ARTHUR: 07/01/21 Final ARTHUR Source: US >20 weeks Vaginal Delivery Operative Information Date of Procedure: 07/06/21 Pre-Operative Diagnosis: Jimenez intrauterine , active labor, desires trial of labor after section Post-Operative Diagnosis: Jimenez intrauterine , vaginal after section Surgery / Procedure Performed: Spontaneous Vaginal Delivery Type of Anesthesia: None Estimated Blood Loss: 300cc Findings Description of Procedure: Spontaneous vaginal delivery of viable male. No nuchal cord. Cord clamped and cut, baby to awaiting staff. Spontaneous delivery of placenta. Lidocaine injected to perineum. Second- degree laceration repaired in the usual fashion, hemostatic. Infant A Gender: Male (1 minute): 8 (5 minute): 9
[2021-07-06] MEDS: Acetaminophen 500 MG Tablet 1000 MG PO ×2 (09:01→17:48)
[2021-07-06] MEDS: Ibuprofen 600 MG Tablet PO ×2 (10:42→22:04)
[2021-07-06] MEDS: Senna/Docusate Sodium 1 Tablet PO (20:10)
[2021-07-07 04:05] VITALS: BP 133/60; PULSE 71; O2SAT 97
[2021-07-07 04:08] VITALS: BP 133/80; PULSE 77; RESP 16; TEMP 36; O2SAT 100
--- NOTE | 2021-07-07 07:09 | PCM.PN.OB ---
Subjective Subjective day 1. Lochia minimal. Breast-feeding going well. Cramping minimal. Objective Data Objective Data Vital Signs: Vital Signs Temp Pulse Resp BP Pulse Ox 96.8 F L 77 16 133/80 H 100 07/07/21 04:08 07/07/21 04:08 07/07/21 04:08 07/07/21 04:08 07/07/21 04:08 Oxygen Delivery Method Room Air Weight: 113.942 kg Body Mass Index (BMI) 43.1 Intake & Output: Intake and Output for Last 24 Hours 07/05/21 07/06/21 07/07/21 23:59 23:59 23:59 Intake Total 1307.01 / 1307.01 Balance 1307.01 / 1307.01 Lab / Micro Data Result Diagrams: 07/06/21 06:35 Labs: Laboratory Results - last 24 hr 07/06/21 06:35: Blood Type B POSITIVE, Antibody Screen NEGATIVE Micro: Microbiology 07/06/21 06:45 Nasal Secretion SARS-CoV-2 Antigen (Rapid) - Final Physical Exam Const alert, oriented x3 and no apparent distress HEENT normocephalic Head and Scalp: atraumatic Neck full ROM Resp normal respiratory effort Cardio regular rate GI normal to inspection, nondistended, normoactive bowel sounds GI Narrative: Uterus 2 cm below umbilicus Back/Spine normal ROM Extremity normal to inspection Extremity Narrative: Minimal pedal edema Neuro no focal motor deficits and no sensory deficits noted Psych mental status grossly normal and affect normal Assessment & Plan (1) (vaginal after ): PLAN: day 1 status post successful vaginal after section. Slightly elevated blood pressures during labor, resolved . Breast-feeding. Desires home-going today. Discharge home.
--- NOTE | 2021-07-07 07:10 | PCM.DC ---
Discharge Instructions Diet Discharge Diet: No restrictions Activity Discharge Activity: Return to Normal Activity and May Shower May resume sexual activity in: 2 weeks Weight Bearing Status: Weight bearing as tolerated Lifting Restrictions: No greater than 25 pounds Dressing / Incision Call your doctor if you observe: Fever of 101 or Higher, Change in Color, Inability to urinate, Using more than 1 pad per hour, Shortness of breath, Dizziness, Swelling in the ankles, Chest pain and Calf discomfort Follow Up Care Please Follow Up With: Ananda Zhou MD When: 2 week telehealth, 6 week Test Results: Test results from this visit will be discussed in further detail at your follow-up appointment, if applicable. Discharge Plan Admission Admit Date/Time: 07/06/21 06:05 Primary Reason for Your Visit: Labor and delivery Attending Provider: Cass Villareal Primary Care Provider: Ananda Chase Discharge Orders/Prescriptions Prescriptions: No Action Prenatabs FA 1 tab PO DAILY RF: 0 Probiotic 1 tab PO/SL DAILY RF: 0 Referrals / Follow Up: Ananda Chase MD [Primary Care Provider] - Disposition Disposition (needs filled in before D/C Order can be placed): Home, Self Care
[2021-07-07] MEDS: Ibuprofen 600 MG Tablet PO (07:26)
[2021-07-07 07:28] VITALS: BP 119/63; PULSE 74; RESP 16; TEMP 36.3
[2021-07-07 12:00] VITALS: BP 134/82; PULSE 100; RESP 16; TEMP 36.3
[2021-07-07 12:01] VITALS: BP 134/82; PULSE 100
== END 2021-07-07 13:16 | disposition home or self-care (01) | DRG 807 ==
PROVIDERS: Admitting Provider Student in an Organized Health Care Education/Training Program; PCP Family Medicine; Visit Provider Student in an Organized Health Care Education/Training Program
DX: O34.219 Maternal care for unspecified type scar from previous cesarean delivery (principal); Z37.0 Single live birth; O48.0 Post-term pregnancy; O70.1 Second degree perineal laceration during delivery; Z3A.41 41 weeks gestation of pregnancy
CPT/HCPCS: 59025; 59050; 85025; 86850; 86900; 86901; 87426; 99218; J7120; G0378